=== PATIENT | female | born 2000 | race Two or more races ===

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

== ENCOUNTER 2022-01-23 21:24 | Emergency (ER) | payer MEDICAID, OTHER ==
[~2022-01-23] VITALS: Ht 157.5 cm; Wt 67.6 kg
[2022-01-23 21:34] VITALS: BP 119/71
[2022-01-24] MEDS ORDERED: KETOROLAC TROMETH 30 MG/ML 1ML VIAL IM ONE
[2022-01-24] MEDS ORDERED: METHOCARBAMOL 500 MG TAB PO ONE
== END 2022-01-24 01:40 | disposition home or self-care (01) ==
LOC: ER 21:27
DX: S13.4XXA Sprain of ligaments of cervical spine, initial encounter (principal); V43.52XA Car driver injured in collision with other type car in traffic accident, initial encounter; Y93.89 Activity, other specified; Y92.488 Other paved roadways as the place of occurrence of the external cause; Y99.8 Other external cause status
CPT/HCPCS: 29515; 73610; 73630; 96372; 99284; J1885

== ENCOUNTER 2022-03-23 21:58 | Emergency (ER) | payer SELFPAY ==
[~2022-03-23] VITALS: Ht 157.5 cm; Wt 62.6 kg
[2022-03-24] MEDS ORDERED: chlordiazePOXIDE HCL 25 MG CAP PO ONE (03:00)
[2022-03-24] MEDS ORDERED: FOLIC ACID 1 MG TAB PO ONE (03:00)
[2022-03-24] MEDS ORDERED: LORazepam 2MG/ML-1ML VIAL IV ONE (03:00)
[2022-03-24] MEDS ORDERED: SODIUM CHLORIDE 0.9% 1,000 ML IVB ONE (03:00)
[2022-03-24] MEDS ORDERED: THIAMINE 100mg/ml INJ (200mg/2ml VIAL) IV ONE (03:00)
[2022-03-24 04:09] LABS: Basophils # (auto) 0 10 ^3/uL (0-0.2); Basophils % (auto) 0.3 % (0.0-2.0); Eosinophils # (auto) 0 10 ^3/uL (0-0.8); Eosinophils % (auto) 0.1 % (0.0-7.0); Hemoglobin 14.9 g/dL (12.2-16.2); Lymphocytes # (auto) 0.4 10 ^3/uL (0.4-5.4); Lymphocytes % (auto) 3.1 % (10.0-50.0); Mean Corpuscular Hemoglobin 31.8 pg (28.0-32.0); Mean Corpuscular Hgb Conc. 34.7 g/dL (32.0-36.0); Mean Corpuscular Volume 91.8 fL (80.0-100.0); Monocytes # (auto) 0.6 10 ^3/uL (0-1.3); Monocytes % (auto) 4.8 % (0.0-12.0); Neutrophils # (auto) 10.9 10 ^3/uL (1.6-8.6); Neutrophils % (auto) 91.7 % (37.0-80.0); Red Blood Cells 4.69 10^6/uL (4.0-5.20); Red Cell Distribution Width 12.7 % (11.8-14.3); White Blood Cell 11.9 10^3/uL (4.4-10.8)
[2022-03-24] MEDS ORDERED: KETOROLAC TROMETH 30 MG/ML 1ML VIAL IV ONE (04:15)
[2022-03-24 04:19] LABS: Albumin 4.2 g/dL (3.4-5.0); Anion Gap 10 (5-15); Blood Alcohol < 3.0 mg/dL (0-5); Blood Urea Nitrogen 9 mg/dL (7-18); Calcium 9.4 mg/dL (8.5-10.1); Carbon Dioxide 27 mmol/L (21-32); Chloride 100 mmol/L (98-107); Glucose 94 mg/dL (74-106); Magnesium 2.1 mg/dL (1.6-2.6); Potassium 3.9 mmol/L (3.5-5.1); Sodium 137 mmol/L (136-145)
[2022-03-24 04:23] LABS: Alanine Aminotransferase 191 U/L (13-56); Alkaline Phosphatase 101 U/L (45-117); Aspartate Aminotransferase 240 U/L (15-37); BUN/Creatinine Ratio 13.2; Bilirubin, Total 1.3 mg/dL (0.2-1.0); GFR African American 139 mL/min; GFR Non-African American 115 mL/min; Total Protein 8.5 g/dL (6.4-8.2)
[2022-03-24] MEDS ORDERED: cefTRIAXone 1GM/50ML D5W 50 ML IV ONE (06:00)
[2022-03-24] MEDS ORDERED: metroNIDAZOLE 500MG/100ML 100 ML IV ONE (06:00)
[2022-03-24] MEDS ORDERED: CEPH-509 PO (09:25)
[2022-03-24 09:30] VITALS: BP 97/48
== END 2022-03-24 09:45 | disposition home or self-care (01) ==
LOC: ER 21:58
DX: R10.9 Unspecified abdominal pain (principal); F10.230 Alcohol dependence with withdrawal, uncomplicated; Y90.9 Presence of alcohol in blood, level not specified; Z90.89 Acquired absence of other organs; Z88.8 Allergy status to other drugs, medicaments and biological substances
CPT/HCPCS: 36415; 76705; 80053; 80320; 81025; 83690; 83735; 84702; 85025; 93005; 96361; 96365; 96366; 96375; 99285; J1885; J2060; J3411; J3490; J7030

== ENCOUNTER 2023-05-24 19:28 | Emergency (ER) | payer SELFPAY ==
[~2023-05-24] VITALS: Ht 157.5 cm; Wt 70.0 kg
[~2023-05-24 19:28] MED LIST: CEPH-509 PO
[2023-05-24] MEDS ORDERED: CYCL-611 PO (20:44)
[2023-05-24] MEDS ORDERED: IBU600T PO (20:44)
[2023-05-24] MEDS ORDERED: IBUPROFEN 800 MG TAB PO ONE (20:45)
[2023-05-24] MEDS ORDERED: DexAMETHasone SOD PHOS 10MG/1ML VIAL INJ IM ONE (20:45)
[2023-05-24 21:00] VITALS: BP 131/87
== END 2023-05-24 21:34 | disposition home or self-care (01) ==
LOC: ER 19:28
DX: S13.9XXA Sprain of joints and ligaments of unspecified parts of neck, initial encounter (principal); S43.401A Unspecified sprain of right shoulder joint, initial encounter; S53.401A Unspecified sprain of right elbow, initial encounter; S63.501A Unspecified sprain of right wrist, initial encounter; F10.90 Alcohol use, unspecified, uncomplicated; Z88.8 Allergy status to other drugs, medicaments and biological substances; Z79.899 Other long term (current) drug therapy; Z90.49 Acquired absence of other specified parts of digestive tract; Z90.89 Acquired absence of other organs; W01.0XXA Fall on same level from slipping, tripping and stumbling without subsequent striking against object, initial encounter; Y93.89 Activity, other specified; Y92.89 Other specified places as the place of occurrence of the external cause; Y99.8 Other external cause status
CPT/HCPCS: 72040; 73030; 73080; 73110; 96372; 99284; J1100

== ENCOUNTER 2024-06-07 05:44 | Emergency (ER) | payer BC ==
[~2024-06-07] VITALS: Ht 157.5 cm; Wt 65.9 kg
[~2024-06-07 05:44] MED LIST changes: +CYCL-611 PO; +IBU600T PO
[2024-06-07 07:25] VITALS: BP 121/72; PULSE 59; RESP 16; TEMP 98.3; O2SAT 99
[2024-06-07] MEDS: KETOROLAC TROMETH 30 MG/ML 1ML VIAL IM ONE (07:47)
[2024-06-07] MEDS ORDERED: IBUP-1454 PO (08:29)
== END 2024-06-07 08:36 | disposition home or self-care (01) ==
LOC: ER 05:44
DX: S00.93XA Contusion of unspecified part of head, initial encounter (principal); F10.90 Alcohol use, unspecified, uncomplicated; Z88.8 Allergy status to other drugs, medicaments and biological substances; Z79.899 Other long term (current) drug therapy; Z79.1 Long term (current) use of non-steroidal anti-inflammatories (NSAID); Z90.49 Acquired absence of other specified parts of digestive tract; Z90.89 Acquired absence of other organs; V89.2XXA Person injured in unspecified motor-vehicle accident, traffic, initial encounter; Y93.89 Activity, other specified; Y92.89 Other specified places as the place of occurrence of the external cause; Y99.8 Other external cause status
CPT/HCPCS: 70450; 96372; 99285; J1885

== ENCOUNTER 2025-02-22 11:50 | Emergency (ER) | payer BC, MEDICAID ==
[~2025-02-22] VITALS: Ht 157.5 cm; Wt 74.2 kg
[~2025-02-22 11:50] MED LIST changes: +IBUP-1454 PO
[2025-02-22 12:45] VITALS: BP 114/71; PULSE 70; RESP 16; TEMP 97.9; O2SAT 98
--- NOTE | 2025-02-22 15:17 | DVH ---
CLINICAL INDICATION: rolled ankle. r/o fracture TECHNIQUE: XY R ANKLE 3 VIEW Comparison: R ANKLE COMPLETE on DOS: 01/23/22 FINDINGS/IMPRESSION: : There is no evidence of acute fracture or dislocation. Soft tissues are unremarkable. Plate and screw fixation of the distal fibula. Chronic appearing ossicle at the medial malleolus. This may be related to prior trauma.
[2025-02-22] MEDS ORDERED: IBUP-1454 PO (16:10)
--- NOTE | 2025-02-22 16:11 | ED.PDOC ---
Musculoskeletal HPI Comments 24 F presents for a possible fracture to the lateral malleolus after she rolled it yesterday and a garage. Complains of pain with ambulation Denies previous surgeries to the ankle Denies redness or swelling around the ankle Denies fever chills night sweats nausea vomiting Chief Complaint: Lower Extremity Time Seen by MD: 12:29 Primary Care Provider: NONE Reviewed Notes: Nurses Notes, Medications, Allergies Allergies: Coded Allergies: Nafcillin (Verified Allergy, Severe, 01/24/22) Home Meds Active Scripts Ibuprofen (Ibuprofen) 600 Mg Tab, 1 TAB PO TIDPRN PRN for 14 Days, #42 TAB 0 Refills Prov:DONALDO CREWSO F RECOATING MACHINE OPERATOR 06/07/24 Cyclobenzaprine HCl (Cyclobenzaprine Hydrochlo) 10 Mg Tab, 1 TAB PO BID, #10 TAB as needed for muscle spasm Prov:KILEY WILLIAMSON Q RECOATING MACHINE OPERATOR 05/24/23 Ibuprofen Micronized (MOTRIN TABLET) 600 Mg Tb, 1 TAB PO TID PRN, #20 TAB as needed for pain Prov:KILEY WILLIAMSON Q RECOATING MACHINE OPERATOR 05/24/23 Cephalexin (KEFLEX 500) 500 Mg Cap, 1 CAP PO TID for 7 Days, #21 CAP Prov:RYANNE LERMA MD 03/24/22 Information Source: Patient Mode of Arrival: Ambulatory Past Medical History PAST MEDICAL HISTORY: Denies Surgical History: Appendectomy, Tonsillectomy SUPPRESSION CREW LEADER History: No Pertinent SUPPRESSION CREW LEADER History Family History Family History: Reviewed,noncontributory to illness Social History Smoker: Non-Smoker Alcohol: Heavy Drugs: Denies Drug Use Lives In: Home All Other Systems: Reviewed and Negative (per hpi) Physical Exam General Appearance: No Apparent Distress, Normal HEENT: Normal ENT Inspection, Pharynx Normal, TMs Normal Neck: Full Range of Motion, Non-Tender, Normal, Normal Inspection Respiratory: Chest Non-Tender, Lungs Clear, No Accessory Muscle Use, No Respi ratory Distress, Normal Breath Sounds Cardiovascular: No Edema, No JVD, No Murmur, No Gallop, Normal Peripheral Pulses, Regular Rate/Rhythm Breast Exam: Deferred Gastrointestinal: No Organomegaly, Non Tender, No Pulsatile Mass, Normal Bowel Sounds, Soft Genitalia: Deferred Pelvic: Deferred Rectal: Deferred Extremities: No calf tenderness, Normal capillary refill, Normal inspection, Normal range of motion, Non-tender, No pedal edema Musculoskeletal : Location: Right Extremity Location: Ankle (Mild swelling to the lateral malleolus. Pain with dorsiflexion plantar flexion. Cap refill less than 3 seconds and distal sensation intact) Apperance: Normal Neurologic: Alert, director of cath lab II-XII nml as Tested, No Motor Deficits, Normal Affect, Normal Mood, No Sensory Deficits Cerebellar Function: Normal Reflexes: Normal Skin: Dry, Normal Color, Warm Lymphatic: No Adenopathy Was a procedure done? Was a procedure done?: No Differential Diagnosis EXT Differential Diagnosis: Fracture, Sprain, Dislocation X-Ray, Labs, Meds, VS Vital Signs Date Time Temp Pulse Resp B/P (MAP) Pulse Ox O2 Delivery O2 Flow Rate FiO2 02/22/25 12:45 70 16 98 Room Air 02/22/25 12:45 97.9 70 16 114/71 (85) 98 97.9 02/22/25 12:15 97.9 70 16 114/71 (85) 98 97.9 X-Ray, Labs, Meds, VS Comment History and examination consistent of muscular injury X-rays ordered, read by radiologist and reviewed by me Low likelihood of bony or more serious injury, VSS, pt stable Take IBU 600 w/ food as needed for pain Recommended heat therapy Reviewed RICE management Avoid heavy lifting or strenuous activity Recommended range of motion exercises and limit heavy activity for 1 week If no improvement advised patient to return to the emergency department for follow-up. Discussed possibility of a occult fracture Time of 1ST Reevaluation: 16:09 Reevaluation 1ST: Improved Patient Education/Counseling: Diagnosis, Treatment Family Education/Counseling: Diagnosis, Treatment Departure 1 Departure Time of Disposition: 16:10 Impression: Primary Impression: Right ankle sprain Qualified Codes: S93.401A - Sprain of unspecified ligament of right ankle, initial encounter Disposition: HOME / SELF CARE / HOMELESS Condition: Stable e-Prescriptions Ibuprofen (Ibuprofen) 600 Mg Tab 1 TAB PO TID for 14 Days, #42 TAB 0 Refills Prov: MACARENA CREWS RECOATING MACHINE OPERATOR 02/22/25 Critical Care Note Critical Care Time?: No Stability Stability form required: No Heart Score Heart Score: Heart Score Response (Comments) Value History N/A 0 EKG N/A 0 Age N/A 0 Risk Factors N/A 0 Troponin N/A 0 Total 0 MACARENA CREWS RECOATING MACHINE OPERATOR Feb 22, 2025 16:11
== END 2025-02-22 16:15 | disposition home or self-care (01) ==
LOC: ER 11:55
DX: S93.401A Sprain of unspecified ligament of right ankle, initial encounter (principal); Z90.49 Acquired absence of other specified parts of digestive tract; Z90.89 Acquired absence of other organs; Z79.899 Other long term (current) drug therapy; Z88.1 Allergy status to other antibiotic agents; X58.XXXA Exposure to other specified factors, initial encounter; Y93.89 Activity, other specified; Y92.89 Other specified places as the place of occurrence of the external cause; Y99.8 Other external cause status
CPT/HCPCS: 73610